=== PATIENT | female | born 1975 | race African-American/Black ===

== ENCOUNTER 2018-12-27 23:17 | Emergency (ER) | payer MEDICAID, SELFPAY ==
[2018-12-27 23:59] LABS: Bilirubin Negative (Negative); Blood, Urine Negative (Negative); Clarity Clear (Clear); Glucose, Urine (Dipstick) Negative (Negative); Leukocyte Negative (Negative); Nitrite Negative (Negative); Protein, Urine (Dipstick) Negative (Neg-Trace); Urobilinogen 0.2 mg/dL (Less than 2)
== END 2018-12-28 00:06 | disposition home or self-care (01) ==
LOC: MADERS 23:17
DX: B34.9 Viral infection, unspecified (principal); I10 Essential (primary) hypertension
CPT/HCPCS: 81003; 87086; 99283